=== PATIENT | female | born 2000 | race Caucasian/White ===

== ENCOUNTER 2021-02-05 16:27 | Outpatient (REF) | payer OTHER, SELFPAY | END 2021-02-05 16:28 | disposition home or self-care (01) | LOC: HO.LNP 16:27 | PROVIDERS: Visit Provider Physician Assistant Medical | DX: Z20.822 Contact with and (suspected) exposure to COVID-19 (principal); J35.1 Hypertrophy of tonsils | CPT/HCPCS: 87071; U0003; U0005 ==